=== PATIENT | female | born 1945 | race Caucasian/White ===

== ENCOUNTER → 2017-12-08 12:42 | Outpatient (CLI) | payer MEDICARE, BC ==
[2015-06-21 12:56] VITALS: BMI 22.0
[~2017-12-08 12:42] MED LIST: ALLEGRA-D1 TAB.SR . PO; BIOTIN5 MG PO; CALCIUM 500 + D1 TAB PO; DETROL LA4 MG PO; DULCOLAX5 MG PO; FERROUS SULFAT325 MG PO; FIORICET-COD 51 EACH PO; GABAPENTIN100 MG PO; NORCO 7.5/325 T1 TA1 PO; PERCOCET 10/3251 TA1 PO; PRESERVISION AR1 CAP PO; PRILOSEC20 MG PO; TRAZODONE HCL50 MG PO; VIBRAMYCIN 100100 MG PO; VITAMIN D250000 UNIT PO; XANAX0.25 MG PO; ZOLOFT25 MG PO
== END | disposition home or self-care (01) ==
LOC: D.CT 10-19 14:00 → D.RT 10-19 14:00 → D.CT 10-19 15:00 → D.RT 12:42
DX: J44.9 Chronic obstructive pulmonary disease, unspecified (principal); R91.8 Other nonspecific abnormal finding of lung field